=== PATIENT | female | born 1980 | race Two or more races ===

== ENCOUNTER 2017-05-22 01:24 | Emergency (ER) | payer OTHER | END 2017-05-22 02:18 | disposition home or self-care (01) | LOC: ER 01:24 | DX: S01.112A Laceration without foreign body of left eyelid and periocular area, initial encounter (principal); Z88.8 Allergy status to other drugs, medicaments and biological substances; W18.39XA Other fall on same level, initial encounter; Y93.89 Activity, other specified; Y99.8 Other external cause status; Y92.89 Other specified places as the place of occurrence of the external cause | CPT/HCPCS: 12011; 99283-25 ==